=== PATIENT | female | born 1955 | race Two or more races ===

== ENCOUNTER → 2017-07-27 | Emergency (ER) | payer OTHER ==
[~2017-07-27] VITALS: Ht 157.5 cm; Wt 110.7 kg
[~2017-07-27] MED LIST: ALTACE2.5 MG PO; METFORMIN HCL500 MG; ZIAC 10/6.25 MG1 TAB PO
== END | disposition home or self-care (01) ==
LOC: ER 15:06
DX: S93.402A Sprain of unspecified ligament of left ankle, initial encounter (principal); S80.02XA Contusion of left knee, initial encounter; S70.02XA Contusion of left hip, initial encounter; W18.09XA Striking against other object with subsequent fall, initial encounter; Y93.89 Activity, other specified; Y92.89 Other specified places as the place of occurrence of the external cause; Y99.8 Other external cause status

== ENCOUNTER 2018-07-30 07:57 | Outpatient (CLI) | payer OTHER | END 2018-07-30 08:04 | disposition home or self-care (01) | LOC: SONOGRAMA 07:57 | DX: E04.1 Nontoxic single thyroid nodule (principal) ==